=== PATIENT | male | born 1985 | race Hispanic/Latino ===

== ENCOUNTER → 2025-05-10 14:51 | Outpatient (REF) | payer OTHER, SELFPAY ==
[2025-05-10 16:46] LABS: HDL Cholesterol 51 mg/dl; LDL Cholesterol, Calculated 60 mg/dl; Very Low Density Lipoprotein 14 mg/dl (0-30)
[2025-05-11 08:18] LABS: Glycohemoglobin (HgbA1c) 5.8 % (4.0-5.6)
== END ==
LOC: REG 14:51
PROVIDERS: ATTENDING PHYSICIAN Internal Medicine
DX: R73.03 Prediabetes (principal)
CPT/HCPCS: 36415; 80061; 83036